=== PATIENT | female | born 1955 | race Caucasian/White ===

== ENCOUNTER 2017-02-13 13:22 | Emergency (ER) | payer MEDICAID ==
[2017-02-13 13:43] VITALS: BP 166/91; PULSE 80; RESP 16; TEMP 98.6; O2SAT 99
--- NOTE | 2017-02-13 14:03 | ED PDOC ---
HPI: Allergic Reaction Time Seen by Provider: 02/13/17 13:50 Chief Complaint (Nursing): Allergic Reaction Chief Complaint (Provider): Allergic reaction History Per: Patient History/Exam Limitations: no limitations Onset/Duration Of Symptoms: Days (2) Current Symptoms Are (Timing): Still Present Context: Food Possible Cause: Food Associated Symptoms: Skin Rash, Itching Home/EMS Treatment: None Additional History Per: Patient Additional Complaint(s): The patient is a 61yo female, presents to the ED for evaluation of an itchy rash diffusely to her body, present for the past 2 days. patient states she ate some potatoes with hot sauce and feels this may have triggered the rash. She denies any shortness of breath, throat swelling, tongue swelling. Offers no additional medical complaints. Past Medical History Reviewed: Historical Data, Nursing Documentation, Vital Signs Vital Signs: Last Vital Signs Temp 98.6 F 02/13/17 13:40 Pulse 80 02/13/17 13:40 Resp 16 02/13/17 13:40 BP 166/91 H 02/13/17 13:40 Pulse Ox 99 02/13/17 13:40 - Medical History PMH: HTN - Surgical History Surgical History: Appendectomy - Family History Family History: States: No Known Family Hx - Social History Current smoker - smoking cessation education provided: No Alcohol: None Drugs: Denies - Home Medications Home Medications: Ambulatory Orders Medication Instructions Recorded Clindamycin [Cleocin] 300 mg PO TID #30 cap 11/28/15 valACYclovir [Valtrex] 1 gm PO TID #21 tab 11/28/15 predniSONE [predniSONE Tab] 20 mg PO DAILY #12 tab 02/13/17 - Allergies Allergies/Adverse Reactions: Allergies Allergy/AdvReac Type Severity Reaction Status Date / Time shrimp Allergy RASH Verified 02/13/17 13:40 Review of Systems ROS Statement: Except As Marked, All Systems Reviewed And Found Negative ENT: Negative for: Throat Swelling Respiratory: Negative for: Shortness of Breath Skin: Positive for: Rash Physical Exam - Reviewed Nursing Documentation Reviewed: Yes Vital Signs Reviewed: Yes - Physical Exam Appears: Positive for: Non-toxic, No Acute Distress Skin: Positive for: Rash (dry, erythematous scaling lesions of varied sizes present diffusely ) Eye Exam: Positive for: Normal appearance Neck: Positive for: Supple Cardiovascular/Chest: Positive for: Regular Rate, Rhythm Respiratory: Positive for: Normal Breath Sounds. Negative for: Respiratory Distress Neurologic/Psych: Positive for: Alert, Oriented - ECG O2 Sat by Pulse Oximetry: 99 (RA) Pulse Ox Interpretation: Normal - Progress ED Course And Treament: Time: 1402 Impression: Allergic reaction Plan: -- Patient to be discharged home with prescriptions for steroids. Informed to follow up with PCP in 1-2 days. Scribe Attestation: Documented by Aileen Cates acting as a scribe for FRANCA Mccormick Provider Attestation: All medical record entries made by the Scribe were at my direction and personally dictated by me. I have reviewed the chart and agree that the record accurately reflects my personal performance of the history, physical exam, medical decision making, and the department course for this patient. I have also personally directed, reviewed, and agree with the discharge instructions and disposition. Disposition - Clinical Impression Clinical Impression: Rash - Patient ED Disposition Is Patient to be Admitted: No Counseled Patient/Family Regarding: Diagnosis, Need For Followup, Rx Given - Disposition Disposition: Routine/Home Disposition Time: 14:02 Condition: GOOD Prescriptions: predniSONE [predniSONE Tab] 20 mg PO DAILY #12 tab Instructions: Acute Rash (ED) Forms: [employer] (Malaysian) Print Language: GEORGIAN
== END 2017-02-13 14:10 | disposition home or self-care (01) ==
LOC: H.ER 13:22
DX: R21 Rash and other nonspecific skin eruption (principal); I10 Essential (primary) hypertension

== ENCOUNTER 2018-08-09 00:13 | Emergency (ER) | payer MEDICAID ==
[2018-08-09 00:33] VITALS: O2SAT 99
--- NOTE | 2018-08-09 04:07 | ED PDOC ---
HPI: General Adult Time Seen by Provider: 08/09/18 04:05 Chief Complaint (Nursing): Hip Pain Chief Complaint (Provider): right hip pain History Per: Patient (63 y/o female here with right hip pain radiating down right leg x 2-3 days. Has take one naproxen (her sons') yesterday and tylenol today for pain. Denies any falls.) Past Medical History Reviewed: Historical Data, Nursing Documentation, Vital Signs Vital Signs: Last Vital Signs Temp 98.3 F 08/09/18 00:29 Pulse 77 08/09/18 00:29 Resp 18 08/09/18 00:29 BP 150/74 08/09/18 00:29 Pulse Ox 99 08/09/18 00:29 - Medical History PMH: HTN - Surgical History Surgical History: Appendectomy - Family History Family History: States: No Known Family Hx - Home Medications Home Medications: Ambulatory Orders Medication Instructions Recorded Clindamycin [Cleocin] 300 mg PO TID #30 cap 11/28/15 valACYclovir [Valtrex] 1 gm PO TID #21 tab 11/28/15 predniSONE [predniSONE Tab] 20 mg PO DAILY #12 tab 02/13/17 Naproxen 375 mg PO Q8 PRN #21 tablet 08/09/18 - Allergies Allergies/Adverse Reactions: Allergies Allergy/AdvReac Type Severity Reaction Status Date / Time shrimp Allergy RASH Verified 02/13/17 13:40 Review of Systems ROS Statement: Except As Marked, All Systems Reviewed And Found Negative Physical Exam - Reviewed Nursing Documentation Reviewed: Yes Vital Signs Reviewed: Yes - Physical Exam Appears: Positive for: Well, Non-toxic, No Acute Distress Head Exam: Positive for: ATRAUMATIC, NORMAL INSPECTION, NORMOCEPHALIC Skin: Positive for: Normal Color, Warm, DRY Eye Exam: Positive for: EOMI, Normal appearance, PERRL ENT: Positive for: Normal ENT Inspection Neck: Positive for: Normal, Painless ROM Cardiovascular/Chest: Positive for: Regular Rate, Rhythm Respiratory: Positive for: CNT, Normal Breath Sounds Gastrointestinal/Abdominal: Positive for: Normal Exam, Soft Back: Positive for: Normal Inspection Extremity: Positive for: Normal ROM, Other (tenderness right gluteal region mild.) Neurological/Psych: Positive for: Awake, Alert, Normal Tone - ECG O2 Sat by Pulse Oximetry: 99 - Progress ED Course And Treament: Toradol 30 mg IM x 1 dose Disposition - Clinical Impression Clinical Impression: Sciatica - Patient ED Disposition Is Patient to be Admitted: No - Disposition Referrals: [facility] [Outside] Disposition: Routine/Home Disposition Time: 04:07 Condition: FAIR Prescriptions: Naproxen 375 mg PO Q8 PRN #21 tablet PRN Reason: Pain, Moderate (4-7) Instructions: Sciatica (DC) Print Language: ANDORRAN
[2018-08-09 04:28] VITALS: BP 127/51; PULSE 80; RESP 16; TEMP 97.9
== END 2018-08-09 04:25 | disposition home or self-care (01) ==
LOC: H.ER 00:13
DX: M54.30 Sciatica, unspecified side (principal); I10 Essential (primary) hypertension
CPT/HCPCS: 96372; 99283; J1885